=== PATIENT | female | born 1960 | race Caucasian/White ===

== ENCOUNTER 2018-02-02 12:01 | Inpatient (IN) ==
[2018-02-02 13:23] LABS: Hematocrit 38.4 % (35.0-46.0); Hemoglobin 13.2 gm/dL (11.6-15.3); Mean Corpuscular HGB Conc 34.4 % (32.0-36.0); Mean Corpuscular Hemoglobin 29.8 pg (27.0-34.0); Mean Corpuscular Volume 86.7 fL (80.0-100.0); Mean Platelet Volume 8.3 fL (7.0-11.0); Platelet Count 250 th/mm3 (150-450); Red Blood Count 4.43 mil/mm3 (4.00-5.30); Red Cell Distribution Width 13.4 % (11.6-17.2); White Blood Count 8.7 th/mm3 (4.0-11.0)
[2018-02-02 13:24] LABS: Baso % (Auto) 0.6 % (0.0-2.0); Eos # (Auto) 0.2 th/mm3 (0.0-0.4); Eos % (Auto) 2.7 % (0.0-4.0); Lymph # (Auto) 1.6 th/mm3 (1.0-4.8); Mono # (Auto) 0.4 th/mm3 (0.0-0.9); Mono % (Auto) 5.1 % (0.0-8.0); Neut # (Auto) 6.4 th/mm3 (1.8-7.7); Neut % (Auto) 73.6 % (16.0-70.0)
[2018-02-02] MEDS ORDERED: Sodium Chlor 0.9% Inj 500 ML IV.CONT ONE (13:30)
[2018-02-02] MEDS ORDERED: ceFAZolin 2 GM Premix Inj 2 GM/50 ML PIGGYBACK IV.SIG SCH (13:30)
[2018-02-02] MEDS ORDERED: Chlorhexidine Gluconate 2% 1 Pack (2 Cloths) TOPICAL ONE (13:30)
[2018-02-02] MEDS ORDERED: Metoprolol Tartrate 25 MG Tablet PO ONE (13:30)
[2018-02-02 13:38] LABS: Calcium 9.1 mg/dL (8.5-10.1); Carbon Dioxide 25.6 meq/L (21.0-32.0); Potassium 3.9 meq/L (3.5-5.1)
[2018-02-02] MEDS ORDERED: Bupivacaine/Epinephrine Inj 0.25% 50 ML Vial ONE (13:54)
[2018-02-02] MEDS ORDERED: Neostigmine Inj 5 MG/5 ML Syringe IV.PUSH ONE (14:06)
[2018-02-02] MEDS ORDERED: Phenylephrine/NS 1000 MCG/10ML Syringe IV.PUSH ONE (14:06)
[2018-02-02] MEDS ORDERED: Glycopyrrolate Inj 1 MG/5 ML Syringe IV.PUSH ONE (14:06)
[2018-02-02] MEDS ORDERED: Lidocaine PF 1% Inj 5 ML Syringe OTHER ONE (14:06)
[2018-02-02] MEDS ORDERED: Ketorolac Inj 30 MG/ML (IVP) Vial IV.PUSH ONE (14:06)
--- NOTE | 2018-02-02 15:44 | ECG ---
Date Performed: 02/02/2018 Time Performed: 12:44:17 PTAGE: 57 years EKG: Sinus rhythm NORMAL ECG NO PREVIOUS TRACING DOCTOR: Bakari Shah Interpretating Date/Time 02/02/2018 15:43:15
[2018-02-02] MEDS ORDERED: Promethazine 25 MG Supp RECTAL PRN (15:56)
[2018-02-02] MEDS ORDERED: Morphine Inj 4 MG/ML Vial IV.PUSH PRN (15:56)
[2018-02-02] MEDS ORDERED: Post-op Orders (for Pharmacy) OTHER ONE (15:56)
[2018-02-02] MEDS ORDERED: Naloxone Inj 0.4 MG/ML Vial IV.PUSH PRN (15:56)
[2018-02-02] MEDS ORDERED: Bisacodyl 10 MG Supp RECTAL PRN (15:56)
[2018-02-02] MEDS ORDERED: Morphine Sulfate Inj 2 MG/ML Vial IV.PUSH PRN (15:56)
[2018-02-02] MEDS ORDERED: fentaNYL Citrate Inj 100 MCG/2 ML Ampul ONE ×2 (16:15→16:16)
[2018-02-02] MEDS ORDERED: *morphine SULFATE 4 MG/ML PERIprocedure ONLY ONE (16:35)
--- NOTE | 2018-02-02 17:10 | MP ---
cc: John Muniz MD DATE OF OPERATION: 02/02/2018 DATE OF PROCEDURE: 02/02/2018 PREOPERATIVE DIAGNOSIS: A 5 cm small bowel mass. POSTOPERATIVE DIAGNOSES: 1. A 5 cm small bowel mass. 2. 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 PROCEDURE PERFORMED: Laparoscopic-assisted small bowel resection. SURGEON: John Muniz MD EDUCATIONAL THERAPIST: Abe Villanueva MD ANESTHESIA: General endotracheal. COMPLICATIONS: None. INDICATIONS: Ms. Lainez is a very pleasant 57-year-old female who was having some nonspecific abdominal pain [place] was [place]. She returned and underwent a CT scan of the abdomen and pelvis for presumed diagnosis of diverticulitis. The patient was noted to have a small bowel mass in the left upper quadrant, 5 cm. She was referred for surgical evaluation and resection. Risks and benefits of resection were discussed with her. She was agreeable. DETAILS OF PROCEDURE: The patient was identified, brought to the operating room, placed supine on the operating table. After adequate general endotracheal anesthesia was achieved, the abdomen was prepped and draped in standard surgical fashion. Marcaine 0.25% was injected into the upper abdomen in the supraumbilical position. A longitudinal incision was made. Dissection was carried down through subcutaneous tissue to midline fascia. The patient had a previous TRAM flap for breast reconstruction on the left side. We encountered the mesh. This was dissected sharply. Peritoneum was then identified, divided sharply and a finger was then placed in the peritoneal cavity without difficulty. Blunt balloon trocar was inserted, and the abdomen was insufflated to 15 mmHg using CO2 gas. Next, a 5 mm trocar was placed in the upper midline under direct vision after anesthetizing the skin and subcutaneous tissue with 0.25% Marcaine and also in the right upper quadrant, again using a similar technique. Attention was now directed to the small bowel. The small bowel was run from the ligament of Treitz proximally to the ileocecal valve. In the proximal jejunum, a soft tissue mass was identified within the small bowel. No other abnormalities were noted in the entire small bowel. The small bowel was noted to be normal size and caliber except for around the mass, where it was dilated. Bowel seemed to be active and peristalsing. Liver was inspected and found to be of normal size and color. Gallbladder was of normal size and color. The patient's cecum had bruce from her previous laparoscopic appendectomy. At this point, we returned to the small bowel mass. This was grasped with a clamp. The upper midline incision was then extended and the mass was brought up into the surgical wound. An Bart wound protector was placed in the upper abdomen. The small bowel was then transected proximally and distally over the mass with gross negative margins, as the mass was very soft and did not feel malignant. The mesentery was taken down with Harmonic scalpel. The mass was then sent for frozen section. Frozen section then returned that this was a villous adenoma. We therefore proceeded with anastomosis. Anastomosis was accomplished using a VICTORINO 55 in [id number] anastomotic technique. Enterotomies were made on the antimesenteric border and the 55 stapler was fired. Anastomosis was intact with no bleeding. The enterotomy was then closed with a TA stapler. Staple lines were then oversewn with 3-0 GI silk. The mesentery was then closed with 3-0 GI silk. The bowel was palpated and the anastomosis was widely patent. The small bowel was returned into the abdomen. Omentum was placed over the small bowel. Attention was now directed to closure. Closure was accomplished using a #1 PDS interrupted [id number] x4. Subcutaneous tissue was injected with additional local anesthetic and then closed with 3-0 and 4-0 Vicryl. The 5 mm port sites were closed with 4-0 Vicryl. The patient tolerated the procedure well, was awakened, extubated and brought to the recovery in stable condition. Please note, Dr. Abe Villanueva was present and scrubbed for the entire procedure. His assistance was critical to the safe outcome of the patient. He assisted in retracting, holding the laparoscopic camera, assisting in identifying the mass. He also assisted in formation of the anastomosis. As stated, he was present and scrubbed for the entire procedure. MD GIOVANNA Serna/aditi , 04:05 PM , 04:15 PM
[2018-02-02] MEDS: Ketorolac Inj 30 MG/ML (IVP) Vial IV.PUSH PRN (18:14)
[2018-02-02] MEDS: Senna/Docusate Sodium 8.6/50 MG Tablet PO SCH (20:22)
[2018-02-02] MEDS ORDERED: Influenza (Quadrivalent) Vaccine 0.5 ML Syringe IM ONE (21:00)
[2018-02-03] MEDS: Ketorolac Inj 30 MG/ML (IVP) Vial IV.PUSH PRN ×4 (02:41→20:33)
[2018-02-03] MEDS: Senna/Docusate Sodium 8.6/50 MG Tablet PO SCH ×2 (08:19→20:30)
--- NOTE | 2018-02-03 08:33 | P.PNGS ---
Subjective Interval history: Resting in bed No complaints Able to tolerate small amounts of liquids Physical Exam Vital signs: Vital Signs 02/02/18 13:11 02/02/18 16:08 02/02/18 16:15 Temperature 97.8 F 98.3 F Pulse Rate 73 74 76 Respiratory Rate 16 14 17 Blood Pressure 102/61 106/59 L 108/62 Pulse Oximetry 95 100 99 02/02/18 16:30 02/02/18 16:37 02/02/18 16:45 Temperature Pulse Rate 61 63 Respiratory Rate 15 14 14 Blood Pressure 104/59 L 101/56 L Pulse Oximetry 98 98 02/02/18 17:00 02/02/18 17:30 02/02/18 20:00 Temperature 97.4 F L 98.1 F Pulse Rate 59 L 63 64 Respiratory Rate 12 16 18 Blood Pressure 98/56 L 100/56 L 114/64 Pulse Oximetry 98 98 95 02/03/18 00:00 02/03/18 03:11 02/03/18 04:00 Temperature 97.1 F L 97.3 F L Pulse Rate 53 L 53 L Respiratory Rate 19 18 18 Blood Pressure 107/56 L 124/62 Pulse Oximetry 95 96 02/03/18 07:35 Temperature 98.0 F Pulse Rate 45 L Respiratory Rate 16 Blood Pressure 128/60 Pulse Oximetry Intake & Output 02/02/18 02/03/18 02/03/18 18:59 06:59 18:59 Intake Total 1050 / 1050 1900 / 1900 Output Total 5 / 5 400 / 400 Balance 1045 / 1045 1500 / 1500 Weight 68 kg 69.4 kg Intake: IV 150 / 150 1000 / 1000 LR 1000 mL Inj 1,000 ML @ 100 1000 / 1000 mls/hr IV.CONT .Q10H MATT Rx#: [id number] Ancef 2 GM Premix Inj 2 gm In 50 / 50 50 ml @ 100 mls/hr IV.SIG [employer] MATT Rx#:[id number] Flagyl 500 MG Inj 100 ML @ 100 100 / 100 mls/hr IV.SIG [employer] MATT Rx#: [id number] Oral 900 / 900 Anesthesia Amount 900 / 900 Output: Urine 400 / 400 Estimated Blood Loss 5 / 5 Other: # Voids 1 Weight On Admission 68 kg Narrative: Alert and awake Abd: soft; flat; tender to palpation; dry dressing with scant amount of drainage Results - Labs 02/02/18 13:10 02/02/18 13:10 Laboratory Results - last 24 hr 02/02/18 02/02/18 02/02/18 13:10 13:10 13:10 WBC 8.7 RBC 4.43 Hgb 13.2 Hct 38.4 MCV 86.7 MCH 29.8 MCHC 34.4 RDW 13.4 Plt Count 250 MPV 8.3 Neut % (Auto) 73.6 H Lymph % (Auto) 18.0 [place] % (Auto) 5.1 Eos % (Auto) 2.7 Baso % (Auto) 0.6 Neut # (Auto) 6.4 Lymph # (Auto) 1.6 [place]born # (Auto) 0.4 Eos # (Auto) 0.2 Baso # (Auto) 0.0 WBC Differential . Differential Comment Auto diff final Sodium 142 Potassium 3.9 Chloride 107 Carbon Dioxide 25.6 Anion Gap 9 BUN 15 Creatinine 0.82 Estimated GFR 72 L Random Glucose 80 Calcium 9.1 Blood Type O Positive Blood Type Recheck Required Antibody Screen Negative Assessment and Plan - Assessment (1) S/P small bowel resection Code(s): Z90.49 - Acquired absence of other specified parts of digestive tract Status: Acute Plan: 57 year old female POD1 lap assisted small bowel resection -Await pathology -Continue liquids for now; encouraged small amounts until bowel function returns -IVF -OOB and mobilize -Pain control
[2018-02-04] MEDS: Senna/Docusate Sodium 8.6/50 MG Tablet PO SCH (08:25)
[2018-02-04] MEDS: Ketorolac Inj 30 MG/ML (IVP) Vial IV.PUSH PRN (08:25)
--- NOTE | 2018-02-04 14:19 | P.DS ---
Date of admission: 02/02/18 12:01 Primary care physician: Suki Ritter MD Attending physician on discharge: John Muniz Anticipated date of discharge: 02/04/18 Brief History from admission: 57 year old female POD2 lap assisted small bowel resection DS: Diagnosis - Discharge Diagnosis (1) S/P small bowel resection Status: Acute DS: Medications - Discharge Medications Prescriptions: hydrocodone-acetaminophen 1 tab PO Q4H PRN #18 tab PRN Reason: acute post op pain exception DS: Summary Hospital Course: This is a 57 year old female POD2 lap assisted small bowel resection. The patient's pain was controlled using oral pain medications. She was able to tolerate a regular diet. She was able to mobilize. She will follow up in the office. - Time Spent with Patient Total time spent providing and/or coordinating discharge services: Less than 30 minutes - Quality: VTE Deep Vein Thrombosis/Pulmonary Embolism Present on Admission: No Exam Vital signs: Vital Signs 02/03/18 16:00 02/03/18 20:00 02/04/18 00:00 Temperature 97.9 F 97.7 F 97.4 F L Pulse Rate 70 62 69 Respiratory Rate 18 18 18 Blood Pressure 174/95 H 131/67 109/54 L Pulse Oximetry 98 97 96 02/04/18 04:00 02/04/18 08:00 02/04/18 12:00 Temperature 97.6 F 97.9 F 98.8 F Pulse Rate 65 60 66 Respiratory Rate 18 14 13 Blood Pressure 120/56 L 139/69 134/60 Pulse Oximetry 97 97 96 Intake & Output 02/03/18 02/04/18 02/04/18 18:59 06:59 18:59 Intake Total 1605 / 1605 480 / 480 Balance 1605 / 1605 480 / 480 Weight 69.4 kg Intake: IV 1605 / 1605 LR 1000 mL Inj 1,000 ML @ 100 1605 / 1605 mls/hr IV.CONT .Q10H MATT Rx#: [id number] Oral 480 / 480 Other: # Voids 2 Narrative: Alert and awake Abd: Soft; minimally tender; dressing changes; incision c/d/i Results Procedures completed during hospitalization: 57 year old female POD2 lap assisted small bowel resection Discharge Plan - Discharge Disposition Patient Disposition: 01 Discharge Home - Discharge Condition Condition: Good - Discharge Order Discharge Orders: Discharge Order (Routine); Ordered 02/04/18 Ordered By: Naty Rogers - Physicians Team Primary Care Provider: Suki Ritter Attending Provider: John Muniz [facility] /Orders / Referrals /Forms Prescriptions: New hydrocodone-acetaminophen 5-325 mg Tablet 1 tab PO Q4H PRN (Reason: acute post op pain exception ) Qty: 18 RF: 0 Continue simvastatin 40 mg Tablet 40 mg PO QPM Referrals: Suki Ritter MD [Primary Care Provider] - See Instructions John Muniz MD [Physician] - See Instructions (Appt set for FridayFeb 10 at 11:30AM) - Discharge Instructions Patient Printed Instructions: Hydrocodone/Acetaminophen (By mouth), Bowel Resection (DC)
== END 2018-02-04 15:25 | disposition home or self-care (01) ==
LOC: HSDI 12:01 → N07 17:48
PROVIDERS: ADMIT Surgery Trauma Surgery; ATTEND Surgery Trauma Surgery